=== PATIENT | male | born 1985 ===

== ENCOUNTER 2018-02-15 19:52 | Emergency (ER) | payer BC ==
[2018-02-15 20:13] VITALS: O2SAT 100
--- NOTE | 2018-02-15 20:44 | C.PDOC ---
History Of Present Illness 32 y/o male present to the ER for evaluation after traveling from [place] and feeling ill for 3 days. Patient complains of fever, chills, headache, sore throat and generalized malaise. Denies cough, SOB, chest pain, vomiting, diarrhea or abdominal pain. Time Seen by Provider: 02/15/18 20:25 Chief Complaint (Nursing): Fever History Per: Patient History/Exam Limitations: no limitations Onset/Duration Of Symptoms: Days Current Symptoms Are (Timing): Still Present Severity: Moderate Past Medical History Reviewed: Historical Data, Nursing Documentation, Vital Signs Vital Signs: Last Vital Signs Temp 100.5 F H 02/15/18 20:09 Pulse 104 H 02/15/18 20:09 Resp 20 02/15/18 20:09 BP 135/84 02/15/18 20:09 Pulse Ox 100 02/15/18 21:32 - Medical History PMH: No Chronic Diseases Surgical History: No Surg Hx Family History: States: No Known Family Hx - Social History Hx Alcohol Use: No Hx Substance Use: No - Immunization History Hx Tetanus Toxoid Vaccination: No Hx Influenza Vaccination: No Hx Pneumococcal Vaccination: No Review Of Systems Except As Marked, All Systems Reviewed And Found Negative. Constitutional: Positive for: Fever, Chills, Malaise ENT: Positive for: Throat Pain Cardiovascular: Negative for: Chest Pain Respiratory: Negative for: Cough, Shortness of Breath Gastrointestinal: Negative for: Vomiting, Abdominal Pain, Diarrhea Neurological: Positive for: Headache Physical Exam - Physical Exam Appears: Non-toxic, No Acute Distress Skin: Normal Color, Warm, Diaphoretic Head: Atraumatic, Normacephalic Eye(s): bilateral: Normal Inspection Ear(s): Bilateral: Normal Nose: Normal Oral Mucosa: Moist Throat: Erythema (mild pharyngeal erythema), No Exudate Neck: Supple Chest: Symmetrical Cardiovascular: Rhythm Regular Respiratory: Normal Breath Sounds, No Rales, No Rhonchi, No Wheezing Neurological/Psych: Oriented x3, Normal Speech ED Course And Treatment O2 Sat by Pulse Oximetry: 100 (RA) Pulse Ox Interpretation: Normal Medical Decision Making Medical Decision Making: Patient traveling from [place] and feeling ill for 3 days. Strep and Flu test ordered. The patient insisting on IV fluids, stating he feel dehydrated and knows it will help him feel better. Lab results negative. On re-eval, patient is resting comfortably, tolerating PO, and is afebrile at this time. Clinical signs and symptoms are not suggestive of sepsis, meningitis , UTI, pneumonia, intra-abdominal pathology, or cellulitis. Patient will be discharged home, and instructed to follow up with his/her physician in 1-2 days without fail. Patient was instructed to return for any worsening symptoms, persistent fever, neck pain, rash, abdominal pain, or vomiting. Disposition Counseled Patient/Family Regarding: Diagnosis, Need For Followup, Rx Given - Disposition Referrals: [facility] [Outside] [facility] [Outside] Disposition: HOME/ ROUTINE Disposition Time: 21:56 Condition: STABLE Additional Instructions: You have viral upper respiratory infection. Take Tylenol or Motrin alternating every 4-6 hours for Fever 100.4F or higher. Rest and drink plenty of fluids. Instructions: Cough, Runny Nose, and the Common Cold (DC) Forms: [facility] (Libyan) - POA Present On Arrival: None - Clinical Impression Clinical Impression: Fever, Influenza-like illness - PA / SAMPLE CHECKER / Resident Statement MD/DO has reviewed & agrees with the documentation as recorded. - Scribe Statement The provider has reviewed the documentation as recorded by the Collinibe Emilie Ruiz Provider Attestation All medical record entries made by the Scribe were at my direction and personally dictated by me. I have reviewed the chart and agree that the record accurately reflects my personal performance of the history, physical exam, medical decision making, and the department course for this patient. I have also personally directed, reviewed, and agree with the discharge instructions and disposition.
[2018-02-15] MEDS ORDERED: Sodium Chloride 0.9% 1,000 ML IV ONE (20:49)
[2018-02-15 22:43] VITALS: BP 112/78; PULSE 100; RESP 18; TEMP 101
== END 2018-02-15 22:30 | disposition home or self-care (01) ==
LOC: C.ER 19:52
DX: J11.1 Influenza due to unidentified influenza virus with other respiratory manifestations (principal); R50.9 Fever, unspecified
CPT/HCPCS: 87070; 87430; 87804; 96360; 99284; J7030